=== PATIENT | male | born 1950 | race Caucasian/White ===

== ENCOUNTER 2023-03-12 08:22 | Day surgery (SDC) | payer MEDICARE ==
--- NOTE | 2023-03-12 08:10 | HP ---
DATE OF SURGERY: 03/12/2023 HISTORY OF PRESENT ILLNESS: The patient is a 73-year-old with some vomiting and weight loss for a few weeks. A little better on some medications. Bowel movements intermittent. He had a positive Cologuard. Last colonoscopy 10 or 15 years ago. Last upper endoscopy more than ten years ago. Family history negative for colon or GI cancer. Denies any bloody stools. PAST MEDICAL HISTORY: He had prostate cancer. Hypertension, chronic obstructive pulmonary disease, hyperlipidemia. Skin on back melanoma. Prostate cancer in the past. The patient was in the [facility] Emergency Room a few weeks ago. The patient has anxiety, hypercholesterolemia as well as prostate cancer in the past. PAST SURGICAL HISTORY: Prostate removed in the past. Tonsillectomy and adenoidectomy. Rotator cuff surgery. Blood clot removed from his right leg by Dr. Olivares last year. He had endoscopy in the past. Right leg femoral bypass. Liver biopsy. Skin cancer excision in the past. MEDICATIONS: Losartan, vitamin D, Pravastatin, Combivent Respimat, Advair Diskus, Xarelto. ALLERGIES: CODEINE. PENICILLIN. SULFA. BEE VENOM PROTEIN. FAMILY HISTORY: Negative in regards to this problem. SOCIAL HISTORY: Former smoker. No alcohol abuse. REVIEW OF SYSTEMS: Fourteen systems reviewed. No chest pain or palpitations. Other systems negative or noncontributory as above and per preadmission questionnaire. PHYSICAL EXAMINATION: Height 5' 9". BMI 28.8. GENERAL: No acute distress. HEENT: Sclerae nonicteric. EOMI. Oral mucous membranes moist. NECK: No JVD. CHEST: Equal excursion, nonlabored breathing. CVS: Regular rate and rhythm. ABDOMEN: Soft. No peritoneal signs. EXTREMITIES: No significant edema. NEURO: Alert, oriented, moving extremities symmetrically. RECTAL: Deferred timed to endoscopy exam. PSYCH: Appropriate mood and affect. SKIN: Dry. IMPRESSION: History of vomiting, history of positive Cologuard, history of weight loss. I recommend upper and lower endoscopy to evaluate for gastritis, peptic ulcer disease, esophagitis, colitis, polyps, neoplasia or other etiology. Risks and benefits explained in detail including but not limited to bleeding or infection, risk of bowel injury or perforation possibly requiring further procedure, risk of incomplete exam possibly requiring barium enema or barium swallow, risk of missed or nondiagnosis or possible need for other procedures or referrals. General risk of anesthesia or sedation, risk of bowel prep but not limited to, consent obtained. Will proceed with outpatient EGD and colonoscopy.
[2023-03-12] MEDS ORDERED: Lactated Ringers 1,000 ML IV SCH (08:30)
[2023-03-12] MEDS ORDERED: Lactated Ringers 1,000 ML IV ONE ×2 (09:13→13:23)
[2023-03-12] MEDS ORDERED: DIPRIVAN 200 MG/20 ML IV ONE (11:33)
[2023-03-12] MEDS ORDERED: Xylocaine-Mpf 2% 5 Ml Vial ONE (11:44)
[2023-03-12 14:35] VITALS: PULSE 56
[2023-03-12 15:08] VITALS: O2SAT 96
[2023-03-12 15:13] VITALS: BP 131/58
--- NOTE | 2023-03-13 12:05 | OP ---
SURGERY DATE/TIME: 03/12/2023 1322 PREOPERATIVE DIAGNOSIS: History of weight loss, history of positive Cologuard, history of vomiting, need for upper and lower endoscopy. POSTOPERATIVE DIAGNOSES: 1) Large polypoid lesion that cannot be safely removed endoscopically distal rectum. 2) Poor bowel prep. 3) Two additional polyps removed with snare in rectum. 4) Cecal and ascending polyps removed with hot biopsy polypectomy. 5) Proximal sigmoid polyps x2 removed with hot snare polypectomy. 6) Minimal to mild gastritis, gastric erythema. 7) Short segment distal gastroesophagitis. 8) Small hiatal hernia. PROCEDURES: 1) EGD with cold biopsy of small bowel to evaluate for celiac sprue. 2) Cold biopsy of antrum to evaluate for Helicobacter pylori. 3) Cold biopsy distal esophagus to evaluate for very short segment 1.5 to 2 mm distal esophagitis versus normal variation gastroesophageal junction. 4) Cold biopsy mid esophagus to evaluate for eosinophilic esophagitis. 5) Colonoscopy to cecum with hot biopsy cecal polyp, hot biopsy polypectomy small ascending colon polyp removed in piecemeal fashion. 6) Hot snare polypectomy proximal sigmoid colon polyps x2 each about 5 to 6 mm in size. 7) Hot snare polypectomy of two distal rectal polyps. 8) Multiple cold biopsies of large polypoid distal rectal mass. 9) Withdrawal time of colonoscopy about 16 minutes. 10) ASA Class III. 11) Bowel prep of the colon was poor. SURGEON: Dr. Wu Li. ANESTHESIA: MAC. ESTIMATED BLOOD LOSS: Minimal. INDICATIONS: As noted above. Risks and benefits explained in detail and not limited to and consent obtained. DESCRIPTION OF PROCEDURE AND FINDINGS: The patient is taken to the endoscopy room. MAC anesthesia introduced. It took some time to start his IV but eventually got midline. After official time out and no disagreement with planned procedure, bite block positioned. Video gastroscope easily passed down the esophagus to the patent pylorus to the third portion of the duodenum. Third, second and first portions of duodenum grossly unremarkable but given his symptoms, cold biopsy taken to evaluate for celiac sprue. Good hemostasis noted. The scope pulled back in the stomach. He had some mild gastric erythema and cold biopsy taken to evaluate for Helicobacter pylori given his symptoms. On retroflex there was a small hiatal hernia. No signs of any large polyps, masses or obstructing lesions. He did have some mild gastric erythema. Cold biopsy taken to evaluate for Helicobacter pylori. The scope is pulled back up. Gastroesophageal junction is about 40 cm. There was a short segment of 1 mm of early distal esophagitis. There is no evidence of any deep erosion. No evidence of any gross Shelby's. There is just a little bit of salmon-pink mucosa extending about 1 mm to 1.5 mm up the esophagus. Cold biopsy taken. Good hemostasis noted. Random cold biopsies taken of mid esophagus to evaluate for eosinophilic esophagitis to rule out other etiology of his symptoms. The patient tolerated this part of the procedure well. Attention is then turned to colonoscopy. On digital rectal exam, he did have polypoid distal rectal lesion. Video colonoscope inserted and passed up through the tortuous sigmoid, descending, transverse, ascending colon. Prep was very poor. With a little cleaning of the left colon, the proximal colon had large chunks of solid stool. The scope was slowly and carefully navigated with some external pressure around to the cecum. Appendiceal orifice and valve well visualized and palpation right lower quadrant to confirm location. There was a small polyp in the cecum removed with hot biopsy polypectomy and another small one about 2.5 to 3 mm removed with hot biopsy polypectomy piecemeal fashion in the proximal ascending colon. The scope was slowly and carefully withdrawn. Again, there is no obstructing masses but very much limited by poor prep particularly in the right colon for obstructing lesion. The scope is slowly and carefully withdrawn. There was some diverticulosis in the left colon. In the proximal sigmoid colon, there were two polyps removed with hot snare polypectomy, one was semi-pedunculated and was about 5 to 6 mm in size and the other one was about 5 mm in size removed with hot snare polypectomy. The base appeared to be viable. Considered putting a clip on the more distal flatter side of the polyp. There was not an angle at the base of this and a clip would do more damage than benefit. Again, the base appeared to be viable at this time. The scope was continued to be pulled back. There was some diverticulosis in the left colon. Scope pulled back to the rectum. On retroflex, there was a large polypoid distal rectum and just upstream from that a couple smaller polyps removed with hot snare polypectomy. The scope is then pulled into the distal rectum. This polypoid lesion could not be safely removed endoscopically. Multiple cold biopsies were taken to evaluate for malignancy or dysplasia. If it was felt that this did not show malignancy, might need to consider some transanal excision. Otherwise, if malignant likely need referral for some neoadjuvant chemo and radiation. The patient tolerated the procedure well. There were no immediate complications. Given his poor prep likely would recommend follow up colonoscopy given the poor prep in the next three months. The ultimate plan will determine what this large polypoid lesion distal rectum is patulous.
== END 2023-03-12 15:04 | disposition home or self-care (01) ==
LOC: SDC 08:22
PROVIDERS: ATTEND Surgery
DX: D12.2 Benign neoplasm of ascending colon (principal); D12.8 Benign neoplasm of rectum; D12.0 Benign neoplasm of cecum; D12.5 Benign neoplasm of sigmoid colon; R19.5 Other fecal abnormalities; R63.4 Abnormal weight loss; R11.10 Vomiting, unspecified; Z85.46 Personal history of malignant neoplasm of prostate; K29.70 Gastritis, unspecified, without bleeding; K21.00 Gastro-esophageal reflux disease with esophagitis, without bleeding; K44.9 Diaphragmatic hernia without obstruction or gangrene
CPT/HCPCS: 99100; J2704